=== PATIENT | female | born 1955 | race Caucasian/White ===

== ENCOUNTER 2016-10-17 19:56 | Emergency (ER) | payer MEDICAID ==
[~2016-10-17] VITALS: Ht 157.5 cm; Wt 45.0 kg
[~2016-10-17 19:56] MED LIST: NAPR220C2
[2016-10-17] MEDS ORDERED: SODIUM CHLORIDE 0.9% 1,000ML IVBOLUS ONE (21:00)
[2016-10-17 21:31] LABS: ASPARTATE AMINO TRANSFERASE 20 U/L (15-37); BLOOD UREA NITROGEN 14 mg/dL (7-18)
[2016-10-17 21:37] LABS: IS PT STATUS REG ER OR PRE ER? YES
[2016-10-17 23:03] VITALS: BP 128/79
== END 2016-10-17 23:06 | disposition home or self-care (01) ==
LOC: ED 23:00
DX: N30.01 Acute cystitis with hematuria (principal); E78.5 Hyperlipidemia, unspecified; F41.1 Generalized anxiety disorder; I25.2 Old myocardial infarction; Z87.891 Personal history of nicotine dependence; Z79.82 Long term (current) use of aspirin
CPT/HCPCS: 36415; 71010; 80053; 81001; 84443; 84484; 85025; 87086; 93005; 99285

== ENCOUNTER 2016-10-30 22:39 | Inpatient (IN) | payer MEDICAID ==
[~2016-10-30] VITALS: Ht 157.5 cm; Wt 46.9 kg
[2016-10-30 23:21] LABS: DAU SCREEN DISCLAIMER
[2016-10-30] MEDS ORDERED: SODIUM CHLORIDE 0.9% 1,000ML IVBOLUS ONE (23:30)
[2016-10-30 23:42] LABS: HEMATOCRIT 43.1 % (34.6-47.8); HEMOGLOBIN 14.2 g/dL (11.7-16.4); WHITE BLOOD COUNT 6.4 x10^3/uL (3.4-10)
[2016-10-30 23:52] LABS: ASPARTATE AMINO TRANSFERASE 18 U/L (15-37); BLOOD UREA NITROGEN 14 mg/dL (7-18)
[2016-10-30 23:54] LABS: ACETAMINOPHEN < 2 mcg/mL (10-30)
[2016-10-31] MEDS ORDERED: TRAZ100T15 PO (00:19)
[2016-10-31] MEDS ORDERED: CLON0.5T PO (00:19)
[2016-10-31] MEDS ORDERED: ATOR10TA9 PO (00:19)
[2016-10-31] MEDS ORDERED: ASPI-515 PO (00:19)
[2016-10-31] MEDS ORDERED: NS + 20MEQ KCL 1,000 ML IV SCH (02:28)
[2016-10-31] MEDS ORDERED: LORazepam 2 MG/ML, 1ML IVPush PRN (02:30)
[2016-10-31] MEDS ORDERED: BISACODYL 10 MG SUPP PR PRN (02:30)
[2016-10-31] MEDS ORDERED: ONDANSETRON 2MG/ML, 2ML IVPush PRN (02:30)
[2016-10-31] MEDS ORDERED: ACETAMINOPHEN 325 MG TABLET PO PRN (02:30)
[2016-10-31] MEDS ORDERED: DOCUSATE 100 MG CAPSULE PO PRN (02:30)
[2016-10-31] MEDS ORDERED: POLYETHYLENE GLYCOL 17 GM PACKET PO PRN (02:30)
[2016-10-31 03:20] VITALS: BP 109/74
[2016-10-31] MEDS: NICOTINE 14MG/24 HR PATCH.TD24 TD SCH (04:20)
[2016-10-31] MEDS: ENOXAPARIN 40 MG/0.4 ML SQ SCH (04:20)
[2016-10-31 07:30] VITALS: BP 103/61
[2016-10-31] MEDS: ASPIRIN 81 MG TABLET EC PO SCH (08:27)
[2016-10-31] MEDS: THIAMINE 100MG TABLET PO SCH (08:27)
[2016-10-31] MEDS: MULTIVITAMIN 1 TABLET PO SCH (08:27)
[2016-10-31] MEDS: FOLIC ACID 1 MG TABLET PO SCH (11:00)
[2016-10-31 13:17] VITALS: BP 137/77
[2016-10-31 16:07] VITALS: BP 132/89
[2016-10-31 19:15] VITALS: BP 116/72
[2016-10-31] MEDS: MIRTAZAPINE 15 MG TABLET PO SCH (20:52)
[2016-10-31] MEDS: ATORVASTATIN 10 MG TABLET PO SCH (20:52)
[2016-11-01 06:20] VITALS: BP 134/82
[2016-11-01] MEDS: NICOTINE 14MG/24 HR PATCH.TD24 TD SCH (06:23)
[2016-11-01] MEDS: ENOXAPARIN 40 MG/0.4 ML SQ SCH (06:24)
[2016-11-01 07:19] VITALS: BP 132/86
[2016-11-01] MEDS: ASPIRIN 81 MG TABLET EC PO SCH (09:06)
[2016-11-01] MEDS: MULTIVITAMIN 1 TABLET PO SCH (09:07)
[2016-11-01] MEDS: THIAMINE 100MG TABLET PO SCH (09:07)
[2016-11-01] MEDS: FOLIC ACID 1 MG TABLET PO SCH (09:07)
[2016-11-01 19:13] VITALS: BP 126/72
[2016-11-01] MEDS: MIRTAZAPINE 15 MG TABLET PO SCH (20:54)
[2016-11-01] MEDS: ATORVASTATIN 10 MG TABLET PO SCH (20:54)
[2016-11-02] MEDS: ENOXAPARIN 40 MG/0.4 ML SQ SCH (05:21)
[2016-11-02] MEDS: NICOTINE 14MG/24 HR PATCH.TD24 TD SCH (05:22)
[2016-11-02 08:03] VITALS: BP 145/85
[2016-11-02] MEDS: THIAMINE 100MG TABLET PO SCH (09:02)
[2016-11-02] MEDS: ASPIRIN 81 MG TABLET EC PO SCH (09:02)
[2016-11-02] MEDS: MULTIVITAMIN 1 TABLET PO SCH (09:02)
[2016-11-02] MEDS: FOLIC ACID 1 MG TABLET PO SCH (09:02)
[2016-11-02] MEDS ORDERED: FOLI-17 PO (10:35)
[2016-11-02] MEDS ORDERED: NICO1PAT4 TD (10:35)
[2016-11-02] MEDS ORDERED: THIA100T6 PO (10:35)
== END 2016-11-02 16:05 | disposition home or self-care (01) | DRG 918 ==
LOC: ED 23:59 → EDIP 10-31 02:01 → SUATTDRO 10-31 02:09 → OBSVTOIN 10-31 02:28 → 4NOR 10-31 03:10 → 3E 10-31 15:47
DX: T42.4X2A Poisoning by benzodiazepines, intentional self-harm, initial encounter (principal); R45.851 Suicidal ideations; E44.0 Moderate protein-calorie malnutrition; F20.9 Schizophrenia, unspecified; Z68.1 Body mass index [BMI] 19.9 or less, adult; F13.20 Sedative, hypnotic or anxiolytic dependence, uncomplicated; F10.129 Alcohol abuse with intoxication, unspecified; E78.5 Hyperlipidemia, unspecified; F15.10 Other stimulant abuse, uncomplicated; F17.210 Nicotine dependence, cigarettes, uncomplicated; F31.9 Bipolar disorder, unspecified; F41.1 Generalized anxiety disorder; I25.10 Atherosclerotic heart disease of native coronary artery without angina pectoris; I25.2 Old myocardial infarction; F41.9 Anxiety disorder, unspecified; R63.4 Abnormal weight loss; Y92.89 Other specified places as the place of occurrence of the external cause; F43.10 Post-traumatic stress disorder, unspecified; Z82.49 Family history of ischemic heart disease and other diseases of the circulatory system; Z85.07 Personal history of malignant neoplasm of pancreas; Z90.710 Acquired absence of both cervix and uterus
CPT/HCPCS: 36415; 80053; 80307; 80329; 85025; 96360; 96361; J1650; J3480; G0378; G0480; J2060; J7030

== ENCOUNTER 2018-01-16 12:16 | Emergency (ER) | payer SELFPAY ==
[~2018-01-16] VITALS: Ht 157.5 cm; Wt 46.3 kg
[~2018-01-16 12:16] MED LIST changes: +ASPI-515 PO; +ATOR10TA9 PO; +CLON0.5T PO; +FOLI-17 PO; +NICO-486 TD; +THIA100T67 PO; +TRAZ-137 PO
[2018-01-16 12:33] VITALS: BP 153/92
== END 2018-01-16 13:39 | disposition home or self-care (01) ==
LOC: ED 13:20
DX: B00.1 Herpesviral vesicular dermatitis (principal); I25.2 Old myocardial infarction; I10 Essential (primary) hypertension; E78.5 Hyperlipidemia, unspecified; F17.200 Nicotine dependence, unspecified, uncomplicated
CPT/HCPCS: 99283

== ENCOUNTER 2019-03-26 23:13 | Inpatient (IN) | payer OTHER ==
[~2019-03-26] VITALS: Ht 157.5 cm; Wt 47.1 kg
[2019-03-26] MEDS ORDERED: SODIUM CHLORIDE FLUSH 10ML SYR IVF ONE (23:30)
[2019-03-26] MEDS ORDERED: methylPREDNISolone SOD SUCC 125 MG/2 ML IVPush ONE (23:30)
[2019-03-26] MEDS ORDERED: ALBUTEROL SULFATE 2.5 MG/3 ML ONE (23:32)
[2019-03-26] MEDS ORDERED: ALBUTEROL/IPRATROPIUM 2.5MG/0.5MG, 3 ML ONE (23:32)
[2019-03-26] MEDS ORDERED: CEFTRIAXONE PMX 1GM/50ML 50 ML ONE (23:53)
[2019-03-26] MEDS ORDERED: LORazepam 2 MG/ML, 1ML ONE (23:54)
[2019-03-26] MEDS ORDERED: methylPREDNISolone SOD SUCC 125 MG/2 ML ONE (23:54)
[2019-03-27] MEDS ORDERED: SODIUM CHLORIDE 0.9% 1,000ML IVBOLUS ONE
[2019-03-27] MEDS ORDERED: SODIUM CHLORIDE FLUSH 10ML SYR IVF ONE
[2019-03-27] MEDS ORDERED: CEFTRIAXONE PMX 1GM/50ML 50 ML IVPB ONE
[2019-03-27] MEDS ORDERED: LORazepam 2 MG/ML, 1ML IV ONE
[2019-03-27 00:07] LABS: BASOPHILS # (AUTO) 0.07 x10^3/uL (0-0.1); BASOPHILS % (AUTO) 1 % (0-1); EOSINOPHILS # (AUTO) 0.56 x10^3/uL (0-0.4); EOSINOPHILS % (AUTO) 6 % (1-7); LYMPHOCYTES # (AUTO) 2.16 x10^3/uL (1-3.4); LYMPHOCYTES % (AUTO) 24 % (22-44); MD NO; MEAN CORPUSCULAR HEMOGLOBIN 32.5 pg (27.0-34.8); MEAN CORPUSCULAR HGB CONC 33.1 g/dL (32.4-35.8); MEAN CORPUSCULAR VOLUME 98.1 fL (80-100); MEAN PLATELET VOLUME 7.9 fL (7.4-10.4); MONOCYTES # (AUTO) 0.86 x10^3/uL (0.2-0.8); MONOCYTES % (AUTO) 9 % (2-9); NEUTROPHILS # (AUTO) 5.42 x10^3/uL (1.8-6.8); NEUTROPHILS % (AUTO) 60 % (42-75); PLATELET COUNT 395 x10^3/uL (130-400); RED BLOOD COUNT 4.68 x10^6/uL (3.82-5.3); RED CELL DISTRIBUTION WIDTH 13.9 % (9.6-15.2)
[2019-03-27 00:15] LABS: ALANINE AMINOTRANSFERASE 25 U/L (12-78); ALBUMIN 3.6 g/dL (3.4-5.0); ANION GAP 8 mmol/L (5-15); CALCIUM 8.6 mg/dL (8.5-10.1); CHLORIDE 107 mmol/L (98-107); CREATININE 0.87 mg/dL (0.55-1.02)
[2019-03-27 00:19] LABS: ALKALINE PHOSPHATASE 93 U/L (45-117); BILIRUBIN,TOTAL 0.3 mg/dL (0.2-1.0); TOTAL PROTEIN 7.2 g/dL (6.4-8.2); TROPONIN I 0.078 ng/mL (0.000-0.045)
[2019-03-27] MEDS ORDERED: OMNIPAQUE 350 MG/ML, 100ML BOTTLE ONE (00:43)
[2019-03-27] MEDS ORDERED: ENOXAPARIN 40 MG/0.4 ML ONE ×2 (01:23→11:35)
[2019-03-27] MEDS ORDERED: ENOXAPARIN 40 MG/0.4 ML SQ ONE ×2 (01:30→11:30)
--- NOTE | 2019-03-27 01:54 | NUR ---
CALLED LEYDI AT [facility], PT CAN STAY HERE AT [facility] AND NOT HAVE TO BE TRANSFERRED TO [facility]
--- NOTE | 2019-03-27 03:30 | NUR ---
Hospital bed requested via MARIO Yeager.
[2019-03-27] MEDS ORDERED: methylPREDNISolone SOD SUCC 125 MG/2 ML IVPush SCH (04:30)
[2019-03-27] MEDS ORDERED: ENALAPRILAT 1.25 MG/ML, 2ML IVPush PRN (04:30)
[2019-03-27] MEDS: NICOTINE 14MG/24 HR PATCH.TD24 TD SCH ×2 (04:30→12:16)
[2019-03-27] MEDS: AZITHROMYCIN 500 MG in SODIUM CHLORIDE 0.9% 250 ML IV SCH (04:30)
[2019-03-27] MEDS ORDERED: ACETAMINOPHEN 325 MG TABLET PO PRN (04:30)
[2019-03-27] MEDS ORDERED: Enoxaparin 1 mg/kg protocol SQ SCH (04:30)
[2019-03-27] MEDS ORDERED: morphine SULFATE 10 MG/ML, 1ML IVPush PRN (04:30)
[2019-03-27] MEDS ORDERED: PROMETHAZINE 25 MG/ML, 1ML IM PRN (04:30)
[2019-03-27] MEDS ORDERED: hydrALAzine 20 MG/ML, 1ML IVPush PRN (04:30)
[2019-03-27 04:58] LABS: CHOLESTEROL, TOTAL 273 mg/dL (140-239); TRIGLYCERIDES 75 mg/dL (50-200); VLDL CHOLESTEROL 15 mg/dL (0-25)
[2019-03-27 05:01] LABS: CHOL/HDL RATIO 3.2; HDL CHOL % 31 % (28-40); HDL CHOLESTEROL (DIRECT) 85 mg/dL (40-60); LDL CHOLESTEROL,CALCULATED 173 mg/dL (54-169)
[2019-03-27 05:10] LABS: TROPONIN I 0.152 ng/mL (0.000-0.045)
[2019-03-27] MEDS ORDERED: ASPIRIN 325 MG TABLET EC ONE (06:23)
[2019-03-27] MEDS ORDERED: methylPREDNISolone SOD SUCC 125 MG/2 ML ONE ×2 (06:23→11:35)
[2019-03-27] MEDS: methylPREDNISolone SOD SUCC 125 MG/2 ML IVPush SCH ×4 (06:30→23:54)
[2019-03-27] MEDS: ASPIRIN 325 MG TABLET EC PO SCH (06:30)
--- NOTE | 2019-03-27 06:54 | NUR ---
REPORT RECEIEVED FROM MARIO REGAN. [facility]
--- NOTE | 2019-03-27 07:24 | NUR ---
PT RESTING IN HOSPITAL BED. EYES CLOSED WITH EQUAL CHEST RISE AND FALL. NO REQUESTS AT THIS TIME
[2019-03-27] MEDS ORDERED: MIRT15TA94 PO (07:53)
--- NOTE | 2019-03-27 08:33 | NUR ---
PT AMBULATED TO BATHROOM
--- NOTE | 2019-03-27 09:31 | NUR ---
PT RESTING IN BED, CALL LIGHT IN REACH. WILL CONTINUE TO MONITOR.
--- NOTE | 2019-03-27 11:10 | NUR ---
PT RESTING IN [facility] BED. STILL WAITING FOR A ROOM TO OPEN UP ON TELE. NO REQUESTS AT THIS TIME
--- NOTE | 2019-03-27 11:56 | NUR ---
MD CARNES NOTIFIED ABOUT POC QUESTIONS.
[2019-03-27] MEDS ORDERED: NICOTINE 14MG/24 HR PATCH.TD24 ONE (12:13)
--- NOTE | 2019-03-27 12:15 | NUR ---
PT REQUESTIONG NICOTINE PATCH, WHICH WAS PREVIOUSLY REFUSED.
[2019-03-27 12:24] LABS: TROPONIN I 0.098 ng/mL (0.000-0.045)
--- NOTE | 2019-03-27 13:33 | NUR ---
US IN PATIENT
[2019-03-27 15:30] VITALS: BP 133/80
[2019-03-27 19:00] LABS: AMPHETAMINE SCREEN, URINE Positive (Negative); BARBITURATE SCREEN, URINE Negative (Negative); BENZODIAZEPINE SCREEN, URINE Negative (Negative); CANNABINOID SCREEN, URINE Positive (Negative); COCAINE SCREEN, URINE Negative (Negative); METHADONE SCREEN, URINE Negative (Negative); OPIATE SCREEN, URINE Negative (Negative)
[2019-03-27 19:21] VITALS: BP 114/69
[2019-03-27] MEDS ORDERED: MIRTAZAPINE 15 MG TABLET PO SCH (21:00)
[2019-03-28 00:45] VITALS: BP_SYST 118; BP_SYST 136; BP_SYST 155; BP_DIAS 63; BP_DIAS 78; BP_DIAS 80
[2019-03-28] MEDS: AZITHROMYCIN 500 MG in SODIUM CHLORIDE 0.9% 250 ML IV SCH (04:54)
[2019-03-28] MEDS: NICOTINE 14MG/24 HR PATCH.TD24 TD SCH (04:56)
[2019-03-28 04:57] LABS: BASOPHILS # (AUTO) 0.01 x10^3/uL (0-0.1); BASOPHILS % (AUTO) 0 % (0-1); EOSINOPHILS % (AUTO) 0 % (1-7); LYMPHOCYTES # (AUTO) 0.66 x10^3/uL (1-3.4); LYMPHOCYTES % (AUTO) 8 % (22-44); MD NO; MEAN CORPUSCULAR HGB CONC 32.5 g/dL (32.4-35.8); MEAN CORPUSCULAR VOLUME 98.6 fL (80-100); MEAN PLATELET VOLUME 8.4 fL (7.4-10.4); MONOCYTES # (AUTO) 0.47 x10^3/uL (0.2-0.8); MONOCYTES % (AUTO) 6 % (2-9); NEUTROPHILS # (AUTO) 7.07 x10^3/uL (1.8-6.8); NEUTROPHILS % (AUTO) 86 % (42-75); PLATELET COUNT 339 x10^3/uL (130-400); RED BLOOD COUNT 4.48 x10^6/uL (3.82-5.3); RED CELL DISTRIBUTION WIDTH 14.1 % (9.6-15.2)
[2019-03-28 05:05] LABS: ANION GAP 8 mmol/L (5-15); CALCIUM 8.8 mg/dL (8.5-10.1); CHLORIDE 106 mmol/L (98-107)
[2019-03-28] MEDS: methylPREDNISolone SOD SUCC 125 MG/2 ML IVPush SCH ×2 (05:46→11:33)
[2019-03-28] MEDS: ASPIRIN 325 MG TABLET EC PO SCH (05:47)
[2019-03-28 07:44] VITALS: BP 129/81
[2019-03-28] MEDS ORDERED: REGADENOSON 0.4 MG/5 ML SYRINGE ONE (09:15)
[2019-03-28 13:29] VITALS: BP 125/68
[2019-03-28] MEDS ORDERED: CARV3.122 PO (13:58)
[2019-03-28] MEDS ORDERED: LISI5TAB7 PO (13:58)
[2019-03-28] MEDS ORDERED: NICO-486 TD (13:58)
[2019-03-28] MEDS ORDERED: AZIT250T89 PO (14:08)
[2019-03-28] MEDS ORDERED: FLU VACC QS2019-20 36MOS UP/PF 0.5 ML IM-VACC ONE (15:00)
== END 2019-03-28 15:53 | disposition home or self-care (01) | DRG 189 ==
LOC: ED 23:21 → EDIP 03-27 01:17 → 4WST 03-27 14:38 → DCLOUNGE 03-28 15:36
PROVIDERS: ADMIT Family Medicine; ATTEND Family Medicine
DX: J96.01 Acute respiratory failure with hypoxia (principal); I50.20 Unspecified systolic (congestive) heart failure; F12.90 Cannabis use, unspecified, uncomplicated; F41.9 Anxiety disorder, unspecified; F17.210 Nicotine dependence, cigarettes, uncomplicated; F51.04 Psychophysiologic insomnia; I11.0 Hypertensive heart disease with heart failure; J43.2 Centrilobular emphysema; M19.041 Primary osteoarthritis, right hand; M19.042 Primary osteoarthritis, left hand; F15.10 Other stimulant abuse, uncomplicated; F32.9 Major depressive disorder, single episode, unspecified; I25.2 Old myocardial infarction; Z82.49 Family history of ischemic heart disease and other diseases of the circulatory system; Z82.5 Family history of asthma and other chronic lower respiratory diseases; Z23 Encounter for immunization
CPT/HCPCS: 36415; 71045; 71275; 78452; 80053; 80061; 80069; 80307; 82962; 83605; 83735; 83880; 84145; 84484; 85025; 87040; 90686; 93005; 93017; 93306; 94640; 96374; 96375; 96376; 99291; G0378; J0456; J0696; J1650; J2785; Q9967; A9502; C9898; J2060; J2930; J7030; J7050